=== PATIENT | male | born 1955 | race Caucasian/White ===

== ENCOUNTER 2021-08-02 10:11 | Outpatient (CLI) | payer OTHER, SELFPAY ==
--- NOTE | ~2021-08-02 | CT_ITS ---
EXAMINATION:CT lung screening DATE: 08/02/2021 10:30 INDICATION: Persistent nicotine dependence. Current smoker with 50 pack year history. TECHNIQUE: Computed tomography (CT) of the chest was performed without intravenous contrast. Automate d exposure control and iterative reconstruction technique were employed. The dose-length product (DLP ) was 232.75 mGy-cm. COMPARISON: None. FINDINGS: There is mild emphysema. There is subpleural bands in the lower lobes. Calcified pulmonary nodules and calcified hilar lymph nodes are consistent with old granulomatous disease. There is a 4 m m nodule in right upper lobe. There is a 3 mm nodule in left upper lobe. There is a 5 mm nodule in le ft lower lobe. There is posterior pleural thickening bilaterally. No pleural effusion. The heart size is normal. There are coronary artery calcifications. There are calcifications of aortic valve. No pe ricardial effusion. There are cysts in the kidneys measuring up to 2.4 cm on the right. There is mild thoracic spondylosis. IMPRESSION: 1. Lung-RADS category 2: Benign appearance or behavior. Continue annual screening with noncontrast lo w-dose chest CT in 12 months. Reviewed, dictated and finalized at location [facility] IMPRESSION: 1. Lung-RADS category 2: Benign appearance or behavior. Continue annual screeni ng with noncontrast low-dose chest CT in 12 months.
== END 2021-08-02 10:12 | disposition home or self-care (01) ==
LOC: CHSIMG 10:15
PROVIDERS: PCP Family Medicine; Visit Provider Family Medicine
DX: Z87.891 Personal history of nicotine dependence (principal)
CPT/HCPCS: 71271

== ENCOUNTER 2021-10-21 09:06 | Outpatient (CLI) | payer OTHER, SELFPAY ==
[2021-10-21 10:30] VITALS: PULSE 63; PULSE 89; O2SAT 94; O2SAT 95
[2021-10-21 10:34] VITALS: PULSE 86; O2SAT 94
[2021-10-21 10:36] VITALS: PULSE 89; O2SAT 94
[2021-10-21 10:40] VITALS: PULSE 66; O2SAT 94
--- NOTE | 2021-10-21 11:23 | HOMEO2EVAL ---
Evaluation was performed at [facility] [place] Home Oxygen Evaluation RC: Home Oxygen (O2) Evaluation Start: 10/21/21 11:20 Freq: Status: Active Protocol: RPE Activity Type Activity Date Activity User E-Sign Co-Sign Detail Recorded Client Recorded Date Recorded By Document 10/21/21 10:30 [facility] [id number] 10/21/21 11:23 [facility] Document 10/21/21 10:34 [facility] [id number] 10/21/21 11:23 [facility] Document 10/21/21 10:36 [facility] [id number] 10/21/21 11:23 [facility] Document 10/21/21 10:40 [facility] [id number] 10/21/21 11:23 [facility] 10/21/21 10/21/21 10/21/21 10:30 10:34 10:36 Home O2 Evaluation Test Phase Resting Exercise Exercise Oxygen Delivery Room Air Room Air Room Air Pulse Oximetry (90-100 %) 95 94 94 Pulse Rate (60-100 beats/min) 63 86 89 Activity Tolerance Excellent Rating of Perceived Dyspnea (PD) +2 Mild, Some Difficulty, Noticeable to the Observer Rate of Perceived Exertion (PE) 13 Somewhat Hard Ambulation Distance (feet) 800 Ambulation Distance (meters) 243.82 Home Oxygen Evaluation Comments Pt walked for 6 minutes with no walking aids used and no O2 needed. Treatment Charges O2 Evaluation - O2 Evaluation - Outpatient Outpatient 10/21/21 10:40 Home O2 Evaluation Test Phase Resting Oxygen Delivery Room Air Pulse Oximetry (90-100 %) 94 Pulse Rate (60-100 beats/min) 66 Activity Tolerance Rating of Perceived Dyspnea (PD) Rate of Perceived Exertion (PE) Ambulation Distance (feet) Ambulation Distance (meters) Home Oxygen Evaluation Comments Treatment Charges
--- NOTE | 2021-10-27 14:10 | WPDPFTINT ---
PFT Procedure Performed PFT Procedure Performed Spirometry with Pre/Post Bronchodilator Plethysmography (Lung Vol) Diffusing Cap (DLCO) Flow Vol Loop PFT Interpretation DOS: 10/21/2021 REQUESTING: Dr. Vasu Dick REASON FOR TESTING: COPD PULMONARY FUNCTION TESTS Results are reliable and reproducible. Spirometry: Pre-bronchodilator FEV1 is 56% predicted, 1.65 L, moderately reduced. The pre bronchodilator FVC is 80%, 3.03 L, normal. The FEV1/FVC ratio is 68% predicted. After bronchodilator administration there was an 11% increase in the FEV1 which is less than 200 mL. There is a 5% increase in the FVC. these are in significant increases. Lung volumes: The total lung capacity is 96% predicted, 5.73 L, normal. The functional reserve capacity is increased to 130% predicted, 3.85 L. Rresidual volume 104% predicted, 2.38 L, normal. The RV/TLC ratio is increased at 41%, indicating air trapping. Airway resistance is increased. Diffusion: DLCO is 70% mildly decreased. DLCO/VA is 104%. Flow volume loop: There is scooping of the expiratory limb. IMPRESSION: There is a moderate obstructive ventilatory impairment without a significant response to bronchodilator administration. Mild air trapping. Mild decrease in diffusion capacity. This pattern can be seen in COPD. Clinical correlation recommended.Lack of response to bronchodilator should not preclude use if clinically indicated. Terri Cordero MD
== END 2021-10-21 09:07 | disposition home or self-care (01) ==
LOC: CHSCARD 09:07
PROVIDERS: PCP Family Medicine; Visit Provider Internal Medicine Pulmonary Disease
DX: J44.9 Chronic obstructive pulmonary disease, unspecified (principal); R06.00 Dyspnea, unspecified
CPT/HCPCS: 94060; 94618; 94726; 94729